=== PATIENT | male | born 1985 | race Two or more races ===

== ENCOUNTER 2017-06-07 08:39 | Emergency (ER) | payer SELFPAY ==
[~2017-06-07 08:39] MED LIST: ACE325S PR; ALB18R INH; AMOX-362 PO; AZIT500T47 PO; BENZ200C15 PO; CLI150 PO; CYC10 PO; DOXY-179 PO; HYDR-3250 PO; HYDR-4309 PO; KET10 PO; LOR5 PO; LOR5/325 PO; METH-543 PO; NAP250 PO; NO MED; NO ROUTINE MEDS; NO RTN MEDS; OMEP40CA79 PO; OND4 PO; ONDA4TAB PO; ONDA8TAB94 PO; PAN20 PO; PAN40 PO; PANT40SU3 PO; PER PO; PHEN120S16 PO; PRE20 PO; PROM5SYR PO; SUCR1TAB85 PO; [UNRECOGNIZED DRUG - CODE] PO
[2017-06-07] MEDS ORDERED: DIPHTH/TETANUS/ACEL. PERTUSSIS IM ONLY ONE (10:10)
--- NOTE | 2017-06-07 10:56 | RADIOLOGY IMAGING REPORT ---
FACILITY: [facility] - [place] PATIENT NAME: Anuj Mendez : 1985 MR: [id number] V: [id number] EXAM DATE: ORDERING PHYSICIAN: VANESSA HERRERA TECHNOLOGIST: Location: [facility] - [place] Patient: Anuj Mendez : 1985 Visit/Account:[id number] Date of Sevice: 06/07/2017 Exam type: FOOT 3 VIEW RIGHT History: Stepped on glass, laceration to right heel Comparison: None. Findings: No radiopaque foreign bodies are identified involving the right foot. No evidence of acute fracture- dislocation or significant arthritic change IMPRESSION: 1. No acute osteoarticular abnormality right foot is seen. Specifically no radiopaque foreign dale s identified Report Dictated By: Emy Newman MD at 06/07/2017 10:50 AM Report E-Signed By: Emy Newman MD at 06/07/2017 10:51 AM WSN:[email or web address]
== END 2017-06-07 10:00 | disposition home or self-care (01) ==
LOC: ER 08:39
DX: S91.311A Laceration without foreign body, right foot, initial encounter (principal); W25.XXXA Contact with sharp glass, initial encounter
CPT/HCPCS: 90471; 90715; 99283

== ENCOUNTER 2017-10-05 09:53 | Emergency (ER) | payer SELFPAY ==
--- NOTE | 2017-10-05 10:30 | ER Report ---
History and Physical Time Seen By MD: 10:10 Hx. of Stated Complaint: PATIENT IS REPORTING COLD AND FLU LIKE SYMPTOMS FOR 3 DAYS. HE HAS NOT TAKEN ANYTHING AT HOME HPI/ROS CHIEF COMPLAINT: Flu like symptoms HISTORY OF PRESENT ILLNESS: 31-year-old male with no contributory past medical history with 3-4 days of sinus pressure, green purulent nasal discharge sore throat body aches and subjective fevers. No known ill contacts. No recent antibiotic use. Patient's also complaining of some yellow watery diarrhea over the last 24-48 hours. There is no significant travel history antibiotic use noted. REVIEW OF SYSTEMS: Respiratory: Occasional dry cough Cardiovascular: No chest pain, no palpitations. Gastrointestinal: No vomiting, no abdominal pain. Musculoskeletal: No back pain. Neurologic: Headache Allergies: Coded Allergies: No Known Drug Allergies (Verified , 06/16/14) Home Meds Discontinued Scripts Albuterol Sulfate (VENTOLIN HFA) 18 Gm Inh, 2 PUFF INH Q4-6H Y for SHORTNESS OF BREATH, #1 INH Prov:SERGE OCONNOR 02/16/16 Promethazine HCl/Codeine (Prometh-Codein 6.25-10 mg/5 ml) 5 Ml Syrup, 1 TSP PO QHS Y for COUGH, #120 ML Prov:SERGE OCONNOR 02/16/16 Benzonatate (BENZONATATE) 200 Mg Capsule, 200 MG PO TID Y for COUGH, #15 CAP Prov:SERGE OCONNOR 02/16/16 Past Medical/Surgical History Noncontributory towards this chief complaint Hx Smoking: Yes (/2 PPD) Smoking Status: Current: Every Day Smoker Exposure to Second Hand Smoke?: No Hx Substance Use Disorder: No Hx Alcohol Use: Yes (OCC) Constitutional Vital Sign - Last 24 Hours 10/05/17 09:56 Temp 97.6 Pulse 65 Resp 24 B/P (MAP) 121/89 Pulse Ox 97 O2 Delivery Room Air Physical Exam General Appearance: The patient is alert, has no immediate need for airway protection and no current signs of toxicity. Eyes: Pupils equal and round no injection. ENT: TMs are clear bilaterally. Oropharynx is noted for posterior cobblestoning. There is tenderness specifically to the right maxillary sinus transillumination of the sinuses shows obstruction of the right maxillary sinus. Respiratory: Chest is non tender, lungs are clear to auscultation. Cardiac: regular rate and rhythm Gastrointestinal: Abdomen is soft and non tender, no masses, bowel sounds normal. Musculoskeletal: Neck: Neck is supple and non tender. Extremities have full range of motion and are non tender. Skin: No rashes or lesions. Medical Decision Making ED Course/Re-evaluation ED Course 10/05/2017 10:49:44 am physical exam points towards right maxillary sinusitis. We will treat appropriately with antibiotics decongestants and pain medicine. Patient will be given a work note for the next 3 days. Patient instructed follow -up with symptoms worsen or persist at any time. Decision to Disposition Date: October 05, 2017 Decision to Disposition Time: 10:50 Depart Departure Latest Vital Signs Vital Signs Date Time Temp Pulse Resp B/P (MAP) Pulse Ox O2 Delivery O2 Flow Rate FiO2 10/05/17 09:56 97.6 65 24 121/89 97 Room Air Impression: Primary Impression: Acute maxillary sinusitis Condition: Improved Disposition: HOME OR SELF-CARE Departure Forms: ER Transition Record, Medications Reconciliation, Off Work/ School Form, School or Work Release?: Work Number of days to be released: 3 Patient Portal Information Patient Instructions: Sinusitis (ED) Problem Qualifiers Primary Impression: Acute maxillary sinusitis Recurrence: non-recurrent Qualified Codes: J01.00 - Acute maxillary sinusitis, unspecified TESSA HAGER MD October 05, 2017 10:30
[2017-10-05 11:14] VITALS: BP 120/83
== END 2017-10-05 11:19 | disposition home or self-care (01) ==
LOC: ER 09:54
DX: J01.00 Acute maxillary sinusitis, unspecified (principal)
CPT/HCPCS: 99283

== ENCOUNTER 2018-02-19 08:21 | Emergency (ER) | payer OTHER ==
[~2018-02-19 08:21] MED LIST changes: +HYDR-4309 PO; -HYDR-653 PO
[2018-02-19] MEDS ORDERED: NAPROXEN 500 MG TAB PO ONE (08:45)
[2018-02-19] MEDS ORDERED: ACETAMINOPHEN 500 MG TAB PO ONE (08:45)
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
[2018-02-19 09:30] VITALS: BP 127/89
[2018-02-19] MEDS ORDERED: MORPHINE IR 15 MG TAB PO ONE (09:35)
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
== END 2018-02-19 09:50 | disposition home or self-care (01) ==
LOC: ER 08:51
DX: S13.9XXA Sprain of joints and ligaments of unspecified parts of neck, initial encounter (principal); S86.911A Strain of unspecified muscle(s) and tendon(s) at lower leg level, right leg, initial encounter; M48.02 Spinal stenosis, cervical region
CPT/HCPCS: 72125; 99284

== ENCOUNTER → 2018-02-19 | Outpatient (CLI) | payer OTHER ==
[~2018-02-19] MED LIST changes: -HYDR-4309 PO; +HYDR-653 PO
== END ==
LOC: AMB 08:07
PROVIDERS: ATTEND Nurse Practitioner
DX: M25.561 Pain in right knee (principal); M54.2 Cervicalgia; V48.9XXA Unspecified car occupant injured in noncollision transport accident in traffic accident, initial encounter; Y92.411 Interstate highway as the place of occurrence of the external cause
CPT/HCPCS: A0425; A0429

== ENCOUNTER 2018-11-26 05:39 | Emergency (ER) | payer SELFPAY ==
[~2018-11-26 05:39] MED LIST changes: -HYDR-4309 PO; +HYDR-653 PO
[2018-11-26 05:43] VITALS: BP 130/88
[2018-11-26] MEDS ORDERED: PANT40TA65 PO (05:49)
--- NOTE | 2018-11-26 05:51 | ER Report ---
History and Physical Time Seen By MD: 05:48 Hx. of Stated Complaint: PATIENT HAS HAD SWELLING TO LEFT LEBOW FOR A COUPLE OF DAYS, THEN YESTERDAY THE SWELLING GOT WORSE, FEELS WARM TO TOUCH AND REDDENED. HPI/ROS CHIEF COMPLAINT: Elbow swelling and pain HISTORY OF PRESENT ILLNESS: This is a 33-year-old male. He has been having some redness and swelling over the lateral elbow and forearm for a couple of days now. Area where he may have had a mosquito bite. Now it is swollen, warm, and more painful. Feels more stiff and it hurts to move. Denies any fevers. He said he did squeeze the area and had some yellowish clear liquid come out. Allergies: Coded Allergies: No Known Drug Allergies (Verified , 11/26/18) Home Meds Active Scripts Hydrocodone Bit/Acetaminophen (HYDROCODON-ACETAMINOPHEN 5-325) 1 Each Tablet, 1 EACH PO Q4H PRN for PAIN, #6 TAB 0 Refills Prov:VANESSA HERRERA MD 11/26/18 Sulfamethoxazole/Trimet 800-160 Mg Tab (BACTRIM DS TABLET) 1 Each Tablet, 1 TAB PO Q12H, #14 TAB 0 Refills Prov:VANESSA HERRERA MD 11/26/18 Reported Medications Pantoprazole Sodium (PANTOPRAZOLE SODIUM) 40 Mg Tablet.dr, 40 MG PO QDAY, TAB.SR 11/26/18 Reviewed Nurses Notes: Yes Hx Smoking: Yes (1/2 PPD) Smoking Status: Current: Every Day Smoker Exposure to Second Hand Smoke?: No Hx Substance Use Disorder: No Hx Alcohol Use: Yes (OCC) Constitutional Vital Sign - Last 24 Hours 11/26/18 05:43 Temp 97.4 Pulse 57 Resp 16 B/P (MAP) 130/88 Pulse Ox 96 O2 Delivery Room Air Physical Exam Gen.: Alert, no acute distress. Skin: Red and warm with some induration around the area of the forearm over the extensor tendons of the forearm near the elbow. There is some central areas look like possible insect bite. I do not feel a fluctuant pocket. Bedside ultrasound was done which did not show any fluctuance and simply swelling of the tissue. Musculoskeletal: He can move the arm but it does cause pain. No deficits. Cardiovascular: Brisk capillary refill and good peripheral perfusion. Neuro: Normal sensation Medical Decision Making ED Course/Re-evaluation ED Course He has cellulitis without abscess. We'll start with the 1 g injection i ntramuscularly of Rocephin followed by Bactrim DS. Also gave Lortab and he will use ibuprofen. Off work today. Hot compresses recommended throughout the day today as well. Decision to Disposition Date: Nov 26, 2018 Decision to Disposition Time: 05:57 Depart Departure Latest Vital Signs Vital Signs Date Time Temp Pulse Resp B/P (MAP) Pulse Ox O2 Delivery O2 Flow Rate FiO2 11/26/18 05:43 97.4 57 16 130/88 96 Room Air Impression: Primary Impression: Cellulitis of arm, left Condition: Improved Disposition: HOME OR SELF-CARE New Scripts Hydrocodone Bit/Acetaminophen (HYDROCODON-ACETAMINOPHEN 5-325) 1 Each Tablet 1 EACH PO Q4H PRN for PAIN, #6 TAB 0 Refills Prov: VANESSA HERRERA MD 11/26/18 Sulfamethoxazole/Trimet 800-160 Mg Tab (BACTRIM DS TABLET) 1 Each Tablet 1 TAB PO Q12H, #14 TAB 0 Refills Prov: VANESSA HERRERA MD 11/26/18 Patient Instructions: Cellulitis (ED) Additional Instructions: Take the antibiotic Bactrim DS twice a day for 7 days. Ibuprofen 200mg over the counter tablets, take 4 tablets three times a day with food. Lortab 5/325, one every 4 hours as needed for pain. Apply hot compress to the area for about 15 minutes every hour while awake VANESSA HERRERA MD Nov 26, 2018 05:51
[2018-11-26] MEDS ORDERED: IBUPROFEN 800 MG TAB PO ONE (06:00)
[2018-11-26] MEDS ORDERED: ACET/HYDROC 5/325MG TH ER ONLY 2 TAB/BOTTLE PO ONE (06:00)
[2018-11-26] MEDS ORDERED: LIDOCAINE 1% MDV 200 MG/20 ML INJ ONE (06:00)
[2018-11-26] MEDS ORDERED: cefTRIAXone 1 GM VIAL IM ONE (06:00)
[2018-11-26] MEDS ORDERED: LOR5/325 PO (06:01)
[2018-11-26] MEDS ORDERED: SULF-198 PO (06:01)
== END 2018-11-26 06:27 | disposition home or self-care (01) ==
LOC: ER 06:03
DX: L03.114 Cellulitis of left upper limb (principal)
CPT/HCPCS: 96372; 99283; J0696; J2001